=== PATIENT | female | born 1980 | race African-American/Black ===

== ENCOUNTER 2017-05-21 23:04 | Emergency (ER) | payer OTHER ==
[~2017-05-21] VITALS: Ht 167.6 cm; Wt 136.1 kg
[2017-05-21] MEDS ORDERED: NORVASC5 MG PO (23:28)
[2017-05-21] MEDS ORDERED: CHILDREN'S ASPI81 MG PO (23:29)
[2017-05-21] MEDS ORDERED: UNICOMPLEX M TA1 TA1 PO (23:29)
[2017-05-21] MEDS ORDERED: LOMOTIL TABLET1 EACH PO (23:30)
[2017-05-21] MEDS ORDERED: IRON325 PO (23:30)
[2017-05-21] MEDS ORDERED: ADDERALL XR 2020 MG PO (23:31)
[2017-05-21] MEDS ORDERED: ZOLOFT25 MG PO (23:31)
[2017-05-21] MEDS ORDERED: ATIVAN1 MG PO (23:32)
[2017-05-22 18:11] LABS: HEP B SURFACE Ab(ANTI-HBS Reactive (()); HEPATITIS C VIRUS AB <0.1 (0.0-0.9)
== END 2017-05-22 01:29 | disposition home or self-care (01) ==
LOC: ER 23:04
PROVIDERS: Emergency Medicine
DX: Z77.21 Contact with and (suspected) exposure to potentially hazardous body fluids (principal)